=== PATIENT | female | born 1985 | race Caucasian/White ===

== ENCOUNTER → 2017-07-15 | Outpatient (CLI) | payer BC ==
--- NOTE | 2017-07-15 11:02 | Diagnostic Imaging Report ---
PROCEDURE: US OB SINGLE FETUS <14 WKS. TECHNIQUE: Multiple real-time grayscale images were obtained over the gravid uterus in various projections. INDICATION: dating. COMPARISON: No prior studies are available for comparison. FINDINGS: There is an intrauterine gestational sac containing a pole. [place]-rump length measurement is 2.3 cm consistent with 9 weeks 0 days gestation. heart rate was recorded at 152 beats per minute. No apparent gestational sac hemorrhage is detected. Ovaries are not visualized due to overlying bowel gas. IMPRESSION: Single live IUP 9 weeks 0 days gestational age. The estimated date of confinement sonographically is 02/17/2018. Dictated by: Dictated on workstation # [id number]
== END ==
LOC: RAD 10:25
PROVIDERS: ATTEND Family Medicine
DX: Z34.91 Encounter for supervision of normal pregnancy, unspecified, first trimester (principal); Z3A.09 9 weeks gestation of pregnancy
CPT/HCPCS: 76801

== ENCOUNTER → 2017-12-25 | Outpatient (CLI) | payer BC ==
--- NOTE | 2017-12-25 16:46 | Diagnostic Imaging Report ---
INDICATION: Followup , four-chamber heart and spine. TECHNIQUE: Multiple real-time grayscale images were obtained over the gravid uterus. COMPARISON: 09/17/2017 FINDINGS: A single live intrauterine gestation is present, in breech presentation. The placenta is posterior. No retroplacental hemorrhage is seen. The placenta does not appear to be low-lying at this time. The amniotic fluid index measures 13.1 cm, which is normal, with the largest vertical pocket measuring 4.7 cm. A four-chamber heart is well seen. The maternal adnexa are not seen. Biometrical measurements are as follows: Biparietal 8.58 cm, age 34 weeks 5 days. Head circumference 31.01 cm, age 34 weeks 5 days. Abdominal circumference 28.11 cm, age 32 weeks 2 days. Femur length 6.03 cm, age 31 weeks 3 days. Sonographic estimate age: 33 weeks 2 days. Sonographic estimated date of delivery: 02/10/18. Estimated Weight: 1959 gm (+/- 286 gm). LMP percentile: 42%. heart rate: 143 beats per minute. number: 1 of 1. IMPRESSION: 1. Single live intrauterine gestation measuring at 33 weeks and 2 days, which is within range of the clinical dates of 32 weeks and 2 days. Heart rate and amniotic fluid are normal. 2. Breech presentation. 3. Four-chamber heart appears normal Dictated by: Dictated on workstation # [id number]
== END ==
LOC: RAD 15:01
PROVIDERS: ATTEND Family Medicine
DX: O32.1XX0 Maternal care for breech presentation, not applicable or unspecified (principal); Z3A.33 33 weeks gestation of pregnancy
CPT/HCPCS: 76816

== ENCOUNTER 2018-02-09 19:32 | Inpatient (IN) | payer BC ==
[~2018-02-09] VITALS: Ht 157.5 cm; Wt 78.7 kg
[2018-02-09] MEDS ORDERED: D5 LR IV SOLUTION 1,000 ML IV ONE (19:37)
[2018-02-09] MEDS ORDERED: D5 LR IV SOLUTION 1,000 ML IV SCH (19:57)
[2018-02-09] MEDS ORDERED: DINOPROSTONE 10 MG (CERVIDIL) INSERT PV ONE (20:00)
[2018-02-09] MEDS ORDERED: ZOLPIDEM 5 MG (AMBIEN) TAB PO PRN (20:00)
[2018-02-09] MEDS ORDERED: MINERAL OIL CONCENTRATE 99.9% 15 ML UDC TOP PRN (20:00)
[2018-02-09] MEDS ORDERED: BUTORPHANOL INJ 2 MG/ML (STADOL) VIAL IV PRN (20:00)
[2018-02-09] MEDS ORDERED: PREN1TAB86 PO (20:09)
[2018-02-09 20:19] LABS: BASOPHILS % (AUTO) 0 % (0-10); EOSINOPHILS % (AUTO) 0 % (0-10); HEMATOCRIT 33 % (35-52); HEMOGLOBIN 12.2 G/DL (11.5-16.0); LYMPHOCYTES # (AUTO) 2.3 X 10^3 (1.0-4.0); LYMPHOCYTES % (AUTO) 21 % (12-44); MEAN CORPUSCULAR HEMOGLOBIN 31 PG (25-34); MEAN CORPUSCULAR HGB CONC 37 G/DL (32-36); MEAN CORPUSCULAR VOLUME 84 FL (80-99); MEAN PLATELET VOLUME 12.3 FL (7.4-10.4); MONOCYTES # (AUTO) 0.8 X 10^3 (0.0-1.0); MONOCYTES % (AUTO) 7 % (0-12); NEUTROPHILS # (AUTO) 7.9 X 10^3 (1.8-7.8); NEUTROPHILS % (AUTO) 72 % (42-75); PLATELET COUNT 136 10^3/uL (130-400); RED BLOOD COUNT 3.98 10^6/uL (4.35-5.85); RED CELL DISTRIBUTION WIDTH 13.3 % (10.0-14.5)
[2018-02-09 20:25] LABS: BILIRUBIN,URINE NEGATIVE (NEGATIVE); CLARITY,URINE CLEAR; COLOR,URINE YELLOW; GLUCOSE, URINE (UA) NEGATIVE (NEGATIVE); KETONES,URINE NEGATIVE (NEGATIVE); LEUKOCYTE ESTERASE ,URINE NEGATIVE (NEGATIVE); NITRITE,URINE NEGATIVE (NEGATIVE); PH,URINE 6.5 (5-9); PROTEIN,URINE NEGATIVE (NEGATIVE); UROBILINOGEN,URINE NORMAL (NORMAL)
[2018-02-09 20:32] LABS: SQUAMOUS EPITHELIAL CELL,UR 0-2 /HPF
--- NOTE | 2018-02-09 21:35 | History & Physical-OB ---
OB - Chief Complaint & HPI Date/Time Date of Admission: Date of Admission: Feb 09, 2018 at 19:32 Time Seen by Provider: 21:15 Chief Complaint/History OB-Reason for Admission/Chief: Induction of Labor Hx : 2 Hx Para: 1 Expected Date of Delivery: Feb 17, 2018 Gestational Age in Weeks: 38 Gestational Age in Days: 6 Admission Nurse Assessment Rev: Yes History of Labs GBS negative Other Upon presentation to floor, US revealed breech presentation. The cervidil scheduled for midnight is cancelled due to her presentation. She was felt last week to be vertex based upon external palpation. Allergies and Home Medications Allergies Coded Allergies: No Known Allergies (Verified Allergy, Unknown, 02/09/18) Home Medications Vit W-Ca,Fe,FA(<1 mg) 1 Each Tablet, 1 EACH PO DAILY, (Reported) Patient Home Medication List Home Medication List Reviewed: Yes OB - History Hx of Present Care: Yes Ultrasounds: Normal mid trimester US Obstetrical Complications: None Medical Complications: None Delivery History Hx Blood Disorders: No Adverse Rxn to Tranfusion: No Patient Past Medical History No chronic medical problems Social History/Family History HIV/AIDS: No Recent Infectious Disease Expo: No Sexually Transmitted Disease: No Alcohol Use: Denies Use Recreational Drug Use: No Immunizations Hepatitis A: Yes Hepatitis B: Yes Tetanus Booster (TDap): Less than 5yrs OB - Admission Exam Physical Exam Heart: Rhythm Normal Lungs: Clear Abdomen: Gravid Cervical Dilatation: 1cm Effacement: 50% Station: -3 Membranes: Intact Heart Rate: 140's Accelerations: Accelerations Present Short Term Variability: Present Custodial Variability: Average (6-25) Contractions on Admission: 6-10 Minutes Apart Intensity: Mild Labs Laboratory Tests Test 02/09/18 19:45 02/09/18 20:00 Range/Units Urine Color YELLOW Urine Clarity CLEAR Urine pH 6.5 5-9 Urine Specific [place] 1.010 L 1.016-1.022 Urine Protein NEGATIVE NEGATIVE Urine Glucose (UA) NEGATIVE NEGATIVE Urine Ketones NEGATIVE NEGATIVE Urine Nitrite NEGATIVE NEGATIVE Urine Bilirubin NEGATIVE NEGATIVE Urine Urobilinogen NORMAL NORMAL MG/DL Urine Leukocyte Esterase NEGATIVE NEGATIVE Urine RBC (Auto) NEGATIVE NEGATIVE Urine RBC NONE /HPF Urine WBC NONE /HPF Urine Squamous Epithelial Cells 0-2 /HPF Urine Crystals NONE /LPF Urine Bacteria NONE /HPF Urine Casts NONE /LPF Urine Mucus NEGATIVE /LPF Urine Culture Indicated NO White Blood Count 11.0 4.3-11.0 10^3/uL Red Blood Count 3.98 L 4.35-5.85 10^6/uL Hemoglobin 12.2 11.5-16.0 G/DL Hematocrit 33 L 35-52 % Mean Corpuscular Volume 84 80-99 FL Mean Corpuscular Hemoglobin 31 25-34 PG Mean Corpuscular Hemoglobin Concent 37 H 32-36 G/DL Red Cell Distribution Width 13.3 10.0-14.5 % Platelet Count 136 130-400 10^3/uL Mean Platelet Volume 12.3 H 7.4-10.4 FL Neutrophils (%) (Auto) 72 42-75 % Lymphocytes (%) (Auto) 21 12-44 % Monocytes (%) (Auto) 7 0-12 % Eosinophils (%) (Auto) 0 0-10 % Basophils (%) (Auto) 0 0-10 % Neutrophils # (Auto) 7.9 H 1.8-7.8 X 10^3 Lymphocytes # (Auto) 2.3 1.0-4.0 X 10^3 Monocytes # (Auto) 0.8 0.0-1.0 X 10^3 Eosinophils # (Auto) 0.0 0.0-0.3 10^3/uL Basophils # (Auto) 0.0 0.0-0.1 10^3/uL OB - Assessment/Plan/Diagnosis Assessment Assessment: induction of labor (now on hold due to breech presentation. ) Admission Dx IUP at term 39 weeks as of 02/10 Admission Status: Inpatient Order (span 2 midnights) Reason for Inpatient Admission: Will be for primary LTCS. Plan Plan: Section (case discussed with Dr Rodgers. Will monitor patient during early am and see if her contraction pattern increases and cervical change. If change will plan on calling surgery crew at that time, otherwise case in am of 02/10) MOR MOODY MD Feb 09, 2018 21:35
--- NOTE | 2018-02-09 21:37 | Diagnostic Imaging Report ---
INDICATION: Evaluate presentation and weight. TECHNIQUE: Multiple real-time grayscale images were obtained over the gravid uterus. FINDINGS: [place] gestation today measures 38 week 3 days reflecting normal growth from previous exam. Positioning is breech. The amniotic fluid index is 7.5 with the largest vertical pocket measuring 3.9 cm. The placenta is fundal with no abruption or previa. Heart rate of 118 beats per minute. IMPRESSION: Breech presenting [place] viable IUP measuring 38 week 3 days. Biometrical measurements are as follows: Biparietal 9.73 cm, age 39 weeks 6 days. Head circumference 34.43 cm, age 39 weeks 6 days. Abdominal circumference 32.66 cm, age 36 weeks 5 days. Femur length 7.22 cm, age 37 weeks 0 days. Sonographic estimate age: 38 weeks 3 days. Sonographic estimated date of delivery: 02/20/2018. Estimated Weight: 3196 gm (+/- 467 gm). LMP percentile: 31%. heart rate: 118 beats per minute. number: 1 of 1. Dictated by: Dictated on workstation # [id number]
[2018-02-09] MEDS ORDERED: CATHETER FLUSH 10 ML SYR IV SCH (22:00)
[2018-02-10] VITALS (7 sets, daily range): BP systolic 109–142; BP diastolic 63–92
[2018-02-10] MEDS ORDERED: LACTATED RINGERS 1,000 ML IV PRN (05:50)
[2018-02-10] MEDS: LACTATED RINGERS 1,000 ML IV PRN ×2 (05:50→07:10)
[2018-02-10] MEDS ORDERED: CITRIC ACID/SOB CIT (BICITRA) 30 ML UDC ONE (05:58)
[2018-02-10] MEDS ORDERED: METOCLOPRAMIDE INJ 10 MG/2 ML (REGLAN) ONE (05:58)
[2018-02-10] MEDS ORDERED: raNItidine INJECTION 50 MG in NS (IVPB) 50 ML IV ONE (06:00)
[2018-02-10] MEDS ORDERED: METOCLOPRAMIDE INJ 10 MG/2 ML (REGLAN) IV ONE (06:00)
[2018-02-10] MEDS ORDERED: CITRIC ACID/SOB CIT (BICITRA) 30 ML UDC PO ONE (06:00)
[2018-02-10] MEDS ORDERED: BUPIVACAINE SPINAL 0.75% (SENSORCAINE) 2 ML AMP ONE (06:23)
[2018-02-10] MEDS ORDERED: OXYTOCIN/NORMAL SALINE 500 ML IV ONE (06:23)
[2018-02-10] MEDS ORDERED: fentaNYL INJECTION 100 MCG/2 ML AMP ONE (06:23)
--- NOTE | 2018-02-10 06:23 | Progress Note (SOAP) ---
Subjective Date Seen by Provider: Feb 10, 2018 Time Seen by Provider: 06:05 Subjective/Events-last exam Patient given ambien last pm to help her rest. Contractions continued throughout early am at every 5-10 minutes. Objective Exam Vital Signs Date Time Temp Pulse Resp B/P (MAP) Pulse Ox O2 Delivery O2 Flow Rate FiO2 02/10/18 01:00 98.5 55 18 109/63 (78) Room Air I & O 02/10/18 07:00 Intake Total 182 ml Balance 182 ml Capillary Refill : General Appearance: No Apparent Distress Other comments cervix at loose 2cm compared to 1 cm on admission Results Lab Laboratory Tests 02/09/18 19:45: Urine Color YELLOW, Urine Clarity CLEAR, Urine pH 6.5, Urine Specific [place] 1.010L, Urine Protein NEGATIVE, Urine Glucose (UA) NEGATIVE, Urine Ketones NEGATIVE, Urine Nitrite NEGATIVE, Urine Bilirubin NEGATIVE, Urine Urobilinogen NORMAL, Urine Leukocyte Esterase NEGATIVE, Urine RBC (Auto) NEGATIVE, Urine RBC NONE, Urine WBC NONE, Urine Squamous Epithelial Cells 0-2, Urine Crystals NONE, Urine Bacteria NONE, Urine Casts NONE, Urine Mucus NEGATIVE, Urine Culture Indicated NO 02/09/18 20:00: White Blood Count 11.0, Red Blood Count 3.98L, Hemoglobin 12.2, Hematocrit 33L, Mean Corpuscular Volume 84, Mean Corpuscular Hemoglobin 31, Mean Corpuscular Hemoglobin Concent 37H, Red Cell Distribution Width 13.3, Platelet Count 136, Mean Platelet Volume 12.3H, Neutrophils (%) (Auto) 72, Lymphocytes (%) (Auto) 21 , Monocytes (%) (Auto) 7, Eosinophils (%) (Auto) 0, Basophils (%) (Auto) 0, Neutrophils # (Auto) 7.9H, Lymphocytes # (Auto) 2.3, Monocytes # (Auto) 0.8, Eosinophils # (Auto) 0.0, Basophils # (Auto) 0.0 Assessment/Plan Assessment/Plan Assess & Plan/Chief Complaint 1. IUP at 40 weeks with infant in breech presentation, now with cervical change. -will plan on primary LTCS due to cervical change. Dr Rodgers and surgery crew notified. Clinical Quality Measures DVT/VTE Risk/Contraindication: Risk Factor Score Per Nursin RFS Level Per Nursing on Admit: 2=Moderate MOR MOODY MD Feb 10, 2018 06:22
[2018-02-10] MEDS ORDERED: OXYTOCIN/NORMAL SALINE 500 ML IV SCH (06:29)
[2018-02-10] MEDS ORDERED: ceFAZolin INJECTION 1,000 MG in NS (IVPB) 50 ML IV ONE (06:30)
[2018-02-10] MEDS ORDERED: TETANUS,DIPTH,PERTUSS P/F (BOOSTRIX) 0.5 ML VIAL IM SCH (06:30)
[2018-02-10] MEDS ORDERED: MEASLES,MUMPS,RUBELLA 1 EA INJ SC SCH (06:30)
[2018-02-10] MEDS ORDERED: HYDROmorphone 2 MG/ML VIAL (DILAUDID) IV PRN (06:30)
[2018-02-10] MEDS ORDERED: ONDANSETRON 4 MG/2 ML (SDV) Z0FRAN IVP PRN (06:30)
--- NOTE | 2018-02-10 06:37 | Discharge Inst-Women's Service ---
Discharge Inst-Women's Serv Depart Medication/Instructions New, Converted or Re-Newed RX: RX on Chart Consults/Follow Up Additional Follow Up: Yes Orders/Referrals Dr. Rodgers in 7-[address] Serrano in 6 weeks Activity Activity: Activity as Tolerated Driving Instructions: No Driving for 1 Week NO SMOKING: NO SMOKING Nothing Inside Vagina: No Douching, No [place], No Tampons Diet Discharge Diet: No Restrictions Symptoms to Report to : Bleeding Excessive, Pain Increased, Fever Over 101 Degrees F, Vaginal Bleeding Increase, Questions/Concerns For Any Problems or Questions: Contact Your Physician Skin/Wound Care Infection Signs and Symptoms: Increased Redness, Foul Odor of Wound, Increased Drainage, Skin Itchy or Has a Rash, Increased Swelling, Temperature Above 101 F Operative Area Clean and Dry: Keep Incision Clean/Dry Stitches/[place]/Dermabond: Dermabond, Care of Stitches Bathing Instructions: CLIFF Ibrahim DO Feb 10, 2018 06:37
[2018-02-10] MEDS ORDERED: ACHD5005 PO (06:39)
[2018-02-10] MEDS ORDERED: DOCU100C37 PO (06:39)
[2018-02-10] MEDS ORDERED: IBUP-844 PO (06:39)
--- NOTE | 2018-02-10 06:45 | Progress Note-Standard ---
Standard Progress Note Progress Notes/Assess & Plan Date Seen by Provider: Feb 10, 2018 Time Seen by Provider: 06:00 Progress/Assessment & Plan Patient presented for IOL with Dr. Serrano and found to be breech. We planned on proceeding at next available opening in OR schedule, however contractions became regular and labor ensued with cervical change. We decided to proceed earlier due to this. Risk of was reviewed in detail with the patient and her while RN present. All questions were answered. CLIFF ZAVALA DO Feb 10, 2018 6:45 am
[2018-02-10] MEDS ORDERED: NALOXONE 0.4 MG/ML 1 ML (NARCAN) VIAL IV PRN (07:45)
[2018-02-10] MEDS ORDERED: ONDANSETRON 4 MG/2 ML (SDV) Z0FRAN IV PRN (07:45)
[2018-02-10] MEDS ORDERED: diphenhydrAMINE 50 MG/ML INJ (BENADRYL) IV PRN (07:45)
--- NOTE | 2018-02-10 08:26 | OPERATIVE REPORT ---
DATE OF SERVICE: PREOPERATIVE DIAGNOSES: 1. A 32-year-old G2, P1 at 39 weeks' gestation. 2. Breech presentation. POSTOPERATIVE DIAGNOSES: 1. A 32-year-old G2, P1 at 39 weeks' gestation. 2. Breech presentation. PROCEDURE: Primary low transverse section. SURGEON: Hayder Zavala DO. POLYMER MATERIALS CONSULTANT: Eleuterio Serrano MD. ANESTHESIA: Spinal. ESTIMATED BLOOD LOSS: 300 mL. URINE OUTPUT: 75 mL clear at the end of the procedure. FLUIDS: 1500 mL of lactate Ringer solution. FINDINGS: A live male infant weighing 7 pounds 4 ounces, Apgars of 8 and 9. Grossly normal appearing uterus, bilateral fallopian tubes and ovaries. SPECIMEN SENT: None. INDICATIONS FOR PROCEDURE: This 32-year-old G2, P1 at 39 weeks was brought in for induction by Dr. Serrano, who had done her care. She was found to be in the breech presentation. I was consulted for delivery. Risk of the procedure was discussed with the patient in detail including risk of bleeding, infection, damaging surrounding structures including but not limited to bowel, bladder, kidneys ureter, need for possible blood transfusion, risk from anesthesia and even . After everything was discussed with the patient, consent was obtained in the preoperative area and the patient was taken to the operating room. OPERATIVE REPORT IN DETAIL: Once in the operating room, spinal analgesia was found to be adequate, placed in the supine position with a leftward tilt, prepped and draped in the normal sterile fashion. After anesthesia was tested and found to be adequate, timeout was performed. I then proceeded with making a Pfannenstiel skin incision with a knife and carried down to the underlying fascia using Bovie cautery. The fascial incision extended laterally using Bovie cautery. The superior aspect of the fascial incision was then grasped with Rosita clamps, tented upward and dissected off the underlying rectus muscles. The inferior aspect of the fascial incision was then grasped with Rosita clamps, tented up and dissected off the underlying rectus muscles. The rectus muscle was then dissected down the midline using Boyle scissors, which exposed the peritoneum, which I entered bluntly and extended using blunt traction. An Nicolas ring retractor was then placed within the peritoneal incision, which offered excellent lateral sidewall retraction. I then identified the lower uterine segment, which was found to be thinned out. I made an incision through the vesicouterine peritoneum using a knife and bluntly dissected off the lower uterine segment. I then proceeded with myotomy until membranes were visualized, at which point I extended the uterine incision laterally and superiorly using bandage scissors. I performed amniotomy using an Allis clamp. Clear fluid was noted at time of rupture. The was found in the breech presentation, it is sarina breech presentation. Its buttocks was then elevated out of the incision where it was delivered with gentle fundal pressure and the abdomen was delivered all the way up to the upper torso, at which point I delivered the arms by sweeping them across the chest and with gentle extension of the body and flexion of the head, I am able to deliver the 's head through the incision. The was bulb suctioned both nares and oropharynx by Dr. Serrano. The cord was doubly clamped and cut and infant was taken off the operative field by Dr. Serrano for further evaluation. Cord blood was collected. A 3-vessel cord with intact placenta was delivered spontaneously thereafter. IV Pitocin was initiated to facilitate uterine contraction. Uterine fundus became firmer with bimanual massage. The uterus was then exteriorized and cleared of all endometrial clots and debris. I then proceeded with closing the uterine incision using 0 Vicryl suture in a running locked fashion. Second layer of imbricating 0 Monocryl was placed. Excellent hemostasis was noted after doing this. I then placed the uterus back in the pelvis and copiously irrigated the pelvis using normal saline. Once again, there was no active bleeding noted from any of my dissection planes. I then placed Interceed antiadhesive over my low transverse incision and proceeded with closing the peritoneum using 3-0 Vicryl suture in running fashion. The rectus muscle was reapproximated using 3-0 Vicryl suture in interrupted fashion. The fascia was reapproximated using 0 Vicryl suture in a running fashion. The subcutaneous tissue was reapproximated using 3-0 plain in interrupted subcutaneous stitch and the skin reapproximated using 4-0 Monocryl in a running subcuticular. Dermabond was applied to the incision. Sterile dressing with adhesive white tape. The patient tolerated the procedure well and sent to the recovery area in stable condition. Lap and sponge count was correct at the end of the procedure. Instrument counts correct as well. One gram of Ancef given preoperatively for infection prophylaxis. Job ID: [id number] DocumentID: [id number] Dictated Date: 02/10/2018 07:36:14 Flavoring Oil Filterer Date: 02/10/2018 08:26:29 Dictated By: HAYDER ZAVALA DO
[2018-02-10] MEDS: KETOROLAC 30 MG/ML VIAL IVP SCH ×3 (09:04→20:58)
[2018-02-10] MEDS: HYDROcodone/APAP 5 MG/325 MG (LORTAB) TAB PO PRN ×4 (11:49→23:55)
[2018-02-10] MEDS: DOCUSATE SODIUM 100 MG (COLACE) CAP PO SCH ×2 (19:39→19:47)
[2018-02-10] MEDS: IBUPROFEN 600 MG (MOTRIN) TAB PO SCH ×2 (19:40→23:50)
[2018-02-10] MEDS: CATHETER FLUSH 10 ML SYR IV SCH ×2 (20:58→23:50)
[2018-02-11] VITALS (9 sets, daily range): BP systolic 130–155; BP diastolic 78–103
[2018-02-11] MEDS: KETOROLAC 30 MG/ML VIAL IVP SCH (03:37)
[2018-02-11] MEDS: CATHETER FLUSH 10 ML SYR IV SCH (03:38)
[2018-02-11 06:31] LABS: BASOPHILS % (AUTO) 0 % (0-10); EOSINOPHILS % (AUTO) 0 % (0-10); HEMATOCRIT 30 % (35-52); HEMOGLOBIN 10.3 G/DL (11.5-16.0); LYMPHOCYTES # (AUTO) 1.5 X 10^3 (1.0-4.0); LYMPHOCYTES % (AUTO) 13 % (12-44); MEAN CORPUSCULAR HEMOGLOBIN 30 PG (25-34); MEAN CORPUSCULAR HGB CONC 34 G/DL (32-36); MEAN CORPUSCULAR VOLUME 89 FL (80-99); MEAN PLATELET VOLUME 12.3 FL (7.4-10.4); MONOCYTES # (AUTO) 0.6 X 10^3 (0.0-1.0); MONOCYTES % (AUTO) 5 % (0-12); NEUTROPHILS # (AUTO) 9.2 X 10^3 (1.8-7.8); NEUTROPHILS % (AUTO) 81 % (42-75); PLATELET COUNT 100 10^3/uL (130-400); RED BLOOD COUNT 3.39 10^6/uL (4.35-5.85); RED CELL DISTRIBUTION WIDTH 13.4 % (10.0-14.5); WHITE BLOOD COUNT 11.3 10^3/uL (4.3-11.0)
[2018-02-11] MEDS: DOCUSATE SODIUM 100 MG (COLACE) CAP PO SCH ×2 (09:45→20:28)
--- NOTE | 2018-02-11 10:55 | Postpartum Progress Note ---
Note Note Day # 1 Subjective: Patient is without complaints. Ambulating, voiding. Tolerating a regular diet without nausea or vomiting. Normal lochia. Pain is well controlled with oral pain medications. Objective: Vital Sign - Last 24 Hours 02/10/18 02/10/18 02/10/18 02/10/18 12:07 12:07 15:15 19:47 Temp 97.7 98.1 98.4 Pulse 55 62 66 Resp 19 18 18 B/P (MAP) 137/85 (102) 134/81 (98) 142/92 (109) Pulse Ox 99 99 99 99 O2 Delivery Room Air Room Air Room Air Room Air 02/10/18 02/10/18 02/11/18 19:48 23:55 03:37 Temp 97.3 99.2 Pulse 70 86 Resp 18 18 B/P (MAP) 127/76 (93) 145/89 (107) Pulse Ox 98 99 O2 Delivery Room Air Room Air Room Air Intake and Output 02/10/18 02/10/18 02/11/18 15:00 23:00 07:00 Intake Total 1000 ml 1150 ml 2300 ml Output Total 375 ml 1775 ml 5750 ml Balance 625 ml -625 ml -3450 ml Physical Exam: General - Alert and oriented, no apparent distress Abdomen - Soft, appropriately tender to palpation, non-distended, fundus firm at umbilicus Extremities - no edema, negative Veronika's bilaterally Incision- c/d/i Assessment: POD 1 PLTCS- Breech GHTN Thrombocytopenia Plan: Routine care. Encourage breast feeding. Starting on labetalol today due to persistent elevated BP Encourage ambulation. Ferrous sulfate supplementation. Plan for discharge tomorrow Vitals - Labs Vital Signs - I&O Vital Signs Date Time Temp Pulse Resp B/P (MAP) Pulse Ox O2 Delivery O2 Flow Rate FiO2 02/11/18 03:37 99.2 86 18 145/89 (107) 99 Room Air 02/10/18 23:55 97.3 70 18 127/76 (93) 98 Room Air 02/10/18 19:48 Room Air 02/10/18 19:47 98.4 66 18 142/92 (109) 99 Room Air 02/10/18 15:15 98.1 62 18 134/81 (98) 99 Room Air 9/17/18 12:07 99 Room Air 02/10/18 12:07 97.7 55 19 137/85 (102) 99 Room Air I & O 02/11/18 07:00 Intake Total 4450 ml Output Total 7900 ml Balance -3450 ml Labs Laboratory Tests 02/11/18 06:20: White Blood Count 11.3H, Red Blood Count 3.39L, Hemoglobin 10.3L, Hematocrit 30L , Mean Corpuscular Volume 89, Mean Corpuscular Hemoglobin 30, Mean Corpuscular Hemoglobin Concent 34, Red Cell Distribution Width 13.4, Platelet Count 100L, Mean Platelet Volume 12.3H, Neutrophils (%) (Auto) 81H, Lymphocytes (%) (Auto) 13, Monocytes (%) (Auto) 5, Eosinophils (%) (Auto) 0, Basophils (%) (Auto) 0, Neutrophils # (Auto) 9.2H, Lymphocytes # (Auto) 1.5, Monocytes # (Auto) 0.6, Eosinophils # (Auto) 0.0, Basophils # (Auto) 0.0 CLIFF ZAVALA DO Feb 11, 2018 10:55 am
[2018-02-11] MEDS ORDERED: LABETALOL 200 MG (NORMODYNE) TAB PO NR (11:00)
[2018-02-11] MEDS: IBUPROFEN 600 MG (MOTRIN) TAB PO SCH ×3 (12:18→23:40)
[2018-02-11] MEDS ORDERED: LABETALOL 200 MG (NORMODYNE) TAB PO SCH (21:00)
[2018-02-12 04:00] VITALS: BP 137/84
[2018-02-12 04:39] LABS: BASOPHILS % (AUTO) 0 % (0-10); EOSINOPHILS % (AUTO) 0 % (0-10); HEMATOCRIT 31 % (35-52); HEMOGLOBIN 10.6 G/DL (11.5-16.0); LYMPHOCYTES # (AUTO) 2.5 X 10^3 (1.0-4.0); LYMPHOCYTES % (AUTO) 23 % (12-44); MEAN CORPUSCULAR HEMOGLOBIN 30 PG (25-34); MEAN CORPUSCULAR HGB CONC 34 G/DL (32-36); MEAN CORPUSCULAR VOLUME 90 FL (80-99); MEAN PLATELET VOLUME 11.6 FL (7.4-10.4); MONOCYTES # (AUTO) 0.7 X 10^3 (0.0-1.0); MONOCYTES % (AUTO) 7 % (0-12); NEUTROPHILS # (AUTO) 7.8 X 10^3 (1.8-7.8); NEUTROPHILS % (AUTO) 70 % (42-75); PLATELET COUNT 135 10^3/uL (130-400); RED BLOOD COUNT 3.48 10^6/uL (4.35-5.85); WHITE BLOOD COUNT 11.1 10^3/uL (4.3-11.0)
[2018-02-12 05:17] LABS: ALANINE AMINOTRANSFERASE 14 U/L (0-55); ALBUMIN 3.3 GM/DL (3.2-4.5); ALKALINE PHOSPHATASE 165 U/L (40-136); BILIRUBIN,TOTAL 0.3 MG/DL (0.1-1.0); BUN/CREATININE RATIO 15; CALCIUM 9.2 MG/DL (8.5-10.1); CARBON DIOXIDE 21 MMOL/L (21-32); CHLORIDE 106 MMOL/L (98-107); CREATININE SERUM 0.62 MG/DL (0.60-1.30); GFR ESTIMATED > 60; GLUCOSE 72 MG/DL (70-105); POTASSIUM 4.1 MMOL/L (3.6-5.0); SODIUM 136 MMOL/L (135-145); TOTAL PROTEIN 5.9 GM/DL (6.4-8.2)
[2018-02-12] MEDS: IBUPROFEN 600 MG (MOTRIN) TAB PO SCH (05:44)
[2018-02-12] MEDS ORDERED: LABE200T7 PO (09:27)
--- NOTE | 2018-02-12 09:28 | Postpartum Progress Note ---
Note Note Day # 2 Subjective: Patient is without complaints. Ambulating, voiding. Tolerating a regular diet without nausea or vomiting. Normal lochia. Pain is well controlled with oral pain medications. Objective: Vital Sign - Last 24 Hours 02/11/18 02/11/18 02/11/18 02/11/18 09:30 09:50 10:31 10:36 Temp 98.4 Pulse 86 86 96 83 Resp 18 B/P (MAP) 141/99 (113) 138/95 (109) 140/96 (111) 147/103 (118) Pulse Ox 99 O2 Delivery Room Air Room Air Room Air Room Air 02/11/18 02/11/18 02/11/18 02/11/18 12:15 15:20 20:00 23:40 Temp 98.1 97.7 98.9 98.8 Pulse 80 85 98 84 Resp 18 B/P (MAP) 155/96 (115) 133/78 (96) 138/85 (102) 130/79 (96) Pulse Ox 100 98 97 O2 Delivery Room Air Room Air Room Air Room Air 02/12/18 04:00 Temp 98.6 Pulse 70 Resp 18 B/P (MAP) 137/84 (101) Pulse Ox 96 O2 Delivery Room Air Intake and Output 02/11/18 02/11/18 02/12/18 15:00 23:00 07:00 Intake Total 2150 ml 1500 ml Output Total 3200 ml 3300 ml Balance -1050 ml -1800 ml Physical Exam: General - Alert and oriented, no apparent distress Abdomen - Soft, appropriately tender to palpation, non-distended, fundus firm at umbilicus Extremities - no edema, negative Veronika's bilaterally Incision- c/d/i Assessment: POD 2 PLTCS GHTN Plan: Routine care. Encourage breast feeding. Encourage ambulation. Ferrous sulfate supplementation. Plan for discharge today Vitals - Labs Vital Signs - I&O Vital Signs Date Time Temp Pulse Resp B/P (MAP) Pulse Ox O2 Delivery O2 Flow Rate FiO2 02/12/18 04:00 98.6 70 18 137/84 (101) 96 Room Air 02/11/18 23:40 98.8 84 18 130/79 (96) 97 Room Air 02/11/18 20:00 98.9 98 18 138/85 (102) 98 Room Air 02/11/18 15:20 97.7 85 18 133/78 (96) Room Air 02/11/18 12:15 98.1 80 20 155/96 (115) 100 Room Air 02/11/18 10:36 83 18 147/103 (118) Room Air 02/11/18 10:31 96 18 140/96 (111) Room Air 02/11/18 09:50 86 18 138/95 (109) Room Air 02/11/18 09:30 98.4 86 18 141/99 (113) 99 Room Air I & O 02/12/18 07:00 Intake Total 3650 ml Output Total 6500 ml Balance -2850 ml Labs Laboratory Tests 02/12/18 04:10: White Blood Count 11.1H, Red Blood Count 3.48L, Hemoglobin 10.6L, Hematocrit 31L , Mean Corpuscular Volume 90, Mean Corpuscular Hemoglobin 30, Mean Corpuscular Hemoglobin Concent 34, Red Cell Distribution Width 14.0, Platelet Count 135, Mean Platelet Volume 11.6H, Neutrophils (%) (Auto) 70, Lymphocytes (%) (Auto) 23 , Monocytes (%) (Auto) 7, Eosinophils (%) (Auto) 0, Basophils (%) (Auto) 0, Neutrophils # (Auto) 7.8, Lymphocytes # (Auto) 2.5, Monocytes # (Auto) 0.7, Eosinophils # (Auto) 0.0, Basophils # (Auto) 0.0, Sodium Level 136, Potassium Level 4.1, Chloride Level 106, Carbon Dioxide Level 21, Anion Gap 9, Blood Urea Nitrogen 9, Creatinine 0.62, Estimat Glomerular Filtration Rate > 60, BUN/ Creatinine Ratio 15, Glucose Level 72, Calcium Level 9.2, Corrected Calcium 9.8 , Total Bilirubin 0.3, Aspartate Amino Transf (AST/SGOT) 21, Alanine Aminotransferase (ALT/SGPT) 14, Alkaline Phosphatase 165H, Total Protein 5.9L, Albumin 3.3 Microbiology 02/10/18 MRSA Screen - Final, Complete MRSA not isolated CLIFF ZAVALA DO Feb 12, 2018 9:28 am
[2018-02-12 09:30] VITALS: BP 134/79
--- NOTE | 2018-02-20 15:06 | DISCHARGE SUMMARY ---
DATE OF SERVICE: ADMISSION DIAGNOSES: 1. A 32-year-old G2, P1 at 39 weeks' gestation. 2. Breech presentation. DISCHARGE DIAGNOSES: 1. A 32-year-old G2, P1 at 39 weeks' gestation. 2. Breech presentation. 3. Postop day #2 primary low transverse section. 4. Gestational hypertension. ATTENDING PHYSICIAN: Dr. Eleuterio Serrano. Transfer of service to Dr. Cliff Zavala due to consultation. SERVICES: Women's services. HOSPITAL COURSE: Please see admission H and P from 02/09/2018 for complete details pertaining to the patient's admission presentation and indications for operative delivery. Please see the operative report from 02/10/2018 for complete details pertaining to the patient's operative report in detail as well as the indications for procedure. POSTOPERATIVE COURSE: This patient was fairly routine with the exception of some elevations in her blood pressure. Incision remained clean, dry and intact. On postop day 1, her pain was well controlled. She was ambulating and voiding freely. She was tolerating a regular diet; however, she had blood pressure that spiked up into the 140s/90s. She was started on labetalol 200 mg b.i.d. at that point. On post- day 2, there was a vast improvement in blood pressures down to 130s over 70s at the highest. Due to the patient's clinical stability on postop day 2, a decision was made to discharge the patient home. She was discharged on the following medications including Motrin 600 mg 1 p.o. q.6 hours as needed for pain, #80. Labetalol 200 mg 1 p.o. b.i.d. #60. Hydrocodone 5/325 one to two p.o. q.4-6 hours p.r.n. as needed for pain, #50 and Colace 100 mg 1 p.o. b.i.d. as needed for constipation, #40. She was given preeclampsia and hypertension precautions and told to return to care if any of those things should occur. She had the ability to check her blood pressure at home, has a blood pressure cuff at home. She was also given routine postoperative and precautions. All of her questions were answered pertaining to these precautions. At that point, the patient was discharged without further difficulty. Job ID: [id number] DocumentID: [id number] Dictated Date: 02/20/2018 11:53:50 Test Rider Date: 02/20/2018 15:05:03 Dictated By: CLIFF ZAVALA DO
== END 2018-02-12 10:40 | disposition home or self-care (01) | DRG 765 ==
LOC: LDRP 19:32
PROVIDERS: ADMIT Family Medicine; ATTEND Family Medicine
PROC: 10D00Z1 Extraction of Products of Conception, Low, Open Approach (ICD-10-PCS; principal; 2018-02-10 06:37)
DX: O32.1XX0 Maternal care for breech presentation, not applicable or unspecified (principal); O72.3 Postpartum coagulation defects; O13.5 Gestational [pregnancy-induced] hypertension without significant proteinuria, complicating the puerperium; Z3A.39 39 weeks gestation of pregnancy; Z37.0 Single live birth
CPT/HCPCS: 36415; 76816; 80053; 81000; 85025; 86850; 86900; 86901; 87081; 94664

== ENCOUNTER → 2020-04-29 | Outpatient (CLI) | payer BC ==
[~2020-04-29] MED LIST: ACHD5005 PO; DOCU100C37 PO; IBUP-844 PO; LABE200T7 PO; PREN1TAB86 PO
--- NOTE | 2020-05-02 10:19 | Diagnostic Imaging Report ---
INDICATION: Routine screening. No prior mammograms are available for comparison. This is a baseline study. 2-D and 3-D bilateral screening mammography was performed with CAD. Both breasts are heterogeneously dense, limiting the sensitivity of mammography. No mass or malignant appearing microcalcifications are seen. There are benign calcifications in the right breast. Axillae are unremarkable. IMPRESSION: BI-RADS Category 2 No mammographic features suspicious for malignancy are identified. ACR BI-RADS Category 2: Benign findings. Result letter will be mailed to the patient. Note: At least 10% of breast cancer is not imaged by mammography. Dictated by: Dictated on workstation # [id number]
== END ==
LOC: RAD 14:45
PROVIDERS: ATTEND Family Medicine
DX: Z12.31 Encounter for screening mammogram for malignant neoplasm of breast (principal)
CPT/HCPCS: 77063; 77067

== ENCOUNTER → 2022-12-24 | Outpatient (CLI) | payer BC ==
[~2022-12-24] MED LIST changes: +LABE200T10 PO; -LABE200T7 PO
--- NOTE | 2022-12-24 11:16 | Diagnostic Imaging Report ---
INDICATION: Routine screening. Comparison is made with prior mammogram from 04/29/2020. 2-D and 3-D bilateral screening mammography was performed with CAD. Both breasts are heterogeneously dense, limiting the sensitivity of mammography. The parenchymal pattern is stable. No mass or malignant-appearing microcalcifications are seen. There are benign calcifications. Axillae are unremarkable. IMPRESSION: No mammographic features suspicious for malignancy are identified. ACR BI-RADS Category 2: Benign findings. Result letter will be mailed to the patient. Note: At least 10% of breast cancer is not imaged by mammography. BI-RADS Category 2 Dictated by: Dictated on workstation # [id number]
== END ==
LOC: RAD 08:22
PROVIDERS: ATTEND Family Medicine
DX: Z12.31 Encounter for screening mammogram for malignant neoplasm of breast (principal)
CPT/HCPCS: 77063; 77067